=== PATIENT | male | born 1985 | race Caucasian/White ===

== ENCOUNTER 2019-09-10 18:23 | Emergency (ER) | payer OTHER ==
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
[2019-09-10] MEDS ORDERED: IBUPROFEN 800 MG TABLET PO ONE (18:34)
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
[2019-09-10] MEDS ORDERED: OXYCODONE-ACETAMINOPHEN 5-325 MG TABLET PO ONE (19:38)
[2019-09-10] MEDS ORDERED: DIPH/PERTUSS(ACELL)/TETANUS VAC/PF 0.5 ML SYR (>=10YO) IM ONE (19:38)
[2019-09-10] MEDS ORDERED: CYCLOBENZAPRINE HCL 10 MG TABLET PO ONE (20:01)
[2019-09-10] MEDS ORDERED: HYDROCODONE/ACETAMINOPHEN 5-325 MG (6 TAB/ER DISP) PO PRN (20:02)
[2019-09-10 20:48] VITALS: BP 119/81
== END 2019-09-10 20:49 | disposition home or self-care (01) ==
LOC: ER 18:23
DX: S70.212A Abrasion, left hip, initial encounter (principal); S80.212A Abrasion, left knee, initial encounter; M25.522 Pain in left elbow; M25.552 Pain in left hip; M25.572 Pain in left ankle and joints of left foot; M79.672 Pain in left foot; V29.9XXA Motorcycle rider (driver) (passenger) injured in unspecified traffic accident, initial encounter; F17.200 Nicotine dependence, unspecified, uncomplicated
CPT/HCPCS: 90715

== ENCOUNTER 2019-09-14 12:24 | Emergency (ER) | payer OTHER ==
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
--- NOTE | 2019-09-14 15:01 | RADIOLOGY REPORT (SQ) ---
EXAM DESCRIPTION: ANKLE LEFT COMPLETE; FOOT LEFT COMPLETE COMPLETED DATE/TIME: 09/14/2019 2:51 pm REASON FOR STUDY: continued pain, swelling, fall 09/10 COMPARISON: 09/10/2019 NUMBER OF VIEWS: Three views. TECHNIQUE: AP, lateral, and oblique radiographic images acquired of the left ankle. LIMITATIONS: None. FINDINGS: MINERALIZATION: Normal. BONES: No definite acute fracture or dislocation. Subtle ossific fragments about the medial aspect o f the talus. No worrisome bone lesions. JOINTS: No effusions. SOFT TISSUES: No soft tissue swelling. No foreign body. OTHER: No other significant finding. IMPRESSION: No definite fracture or dislocation of the left foot or ankle. Subtle ossific fragments about the medial aspect of the talus best seen on mortise view of the ankle, which may be related to fracture or avulsion. MRI may be used to further evaluate for subtle fracture as well as ligamentous integrity of the foot and ankle. TECHNICAL DOCUMENTATION: JOB ID: [id number] [employer]- All Rights Reserved Reading location - IP/workstation name: [email or web address]
--- NOTE | 2019-09-14 15:01 | RADIOLOGY REPORT (SQ) ---
EXAM DESCRIPTION: ANKLE LEFT COMPLETE; FOOT LEFT COMPLETE COMPLETED DATE/TIME: 09/14/2019 2:51 pm REASON FOR STUDY: continued pain, swelling, fall 09/10 COMPARISON: 09/10/2019 NUMBER OF VIEWS: Three views. TECHNIQUE: AP, lateral, and oblique radiographic images acquired of the left ankle. LIMITATIONS: None. FINDINGS: MINERALIZATION: Normal. BONES: No definite acute fracture or dislocation. Subtle ossific fragments about the medial aspect o f the talus. No worrisome bone lesions. JOINTS: No effusions. SOFT TISSUES: No soft tissue swelling. No foreign body. OTHER: No other significant finding. IMPRESSION: No definite fracture or dislocation of the left foot or ankle. Subtle ossific fragments about the medial aspect of the talus best seen on mortise view of the ankle, which may be related to fracture or avulsion. MRI may be used to further evaluate for subtle fracture as well as ligamentous integrity of the foot and ankle. TECHNICAL DOCUMENTATION: JOB ID: [id number] [employer]- All Rights Reserved Reading location - IP/workstation name: [email or web address]
--- NOTE | 2019-09-14 16:07 | RADIOLOGY REPORT (SQ) ---
EXAM DESCRIPTION: CT LT LOWER EXTREMITY WITHOUT COMPLETED DATE/TIME: 09/14/2019 3:52 pm REASON FOR STUDY: Possible talus fx per xray, + swelling left ankle COMPARISON: None. TECHNIQUE: Axial imaging performed through the left ankle with reformatted coronal and sagittal imag ing windowed for bone and soft tissues. Images saved to PACS. 3D IMAGING: Were 3D images as MIP, SSD, or volume rendering performed at the work station? No. All CT scanners at this facility use dose modulation, iterative reconstruction, and/or weight based d osing when appropriate to reduce radiation dose to as low as reasonably achievable (ALARA). [facility]: Dose Right [facility]: CareDose [facility]: Dose Right [facility]: Teradose 4D [facility]: [employer] LIMITATIONS: None. RADIATION DOSE: mGy. FINDINGS: SOFT TISSUES: There is soft tissue edema surrounding the medial and lateral malleolus. BONES: As described on plain films there are small bone fragments adjacent to the talus on the medial all aspect of the ankle. This could represent acute or chronic injury. The patient will need MRI f or additional assessment. MINERALIZATION: Normal. OTHER: No other significant finding. IMPRESSION: Soft tissue edema. There are bone fragments along the medial aspect of the talus. This could be related to old trauma but based on the amount of edema suspect at least ligamentous injury. Acute avulsion injury or chip fracture cannot be excluded. MRI is recommended to evaluate for alfredito ow edema. TECHNICAL DOCUMENTATION: JOB ID: [id number] Quality ID # [id number]: Final reports with documentation of one or more dose reduction techniques (e.g., Au tomated exposure control, adjustment of the mA and/or kV according to patient size, use of iterative reconstruction technique) 2010 [employer]- All Rights Reserved Reading location - IP/workstation name: [email or web address]
[2019-09-14 16:51] VITALS: BP 119/84
== END 2019-09-14 16:50 | disposition home or self-care (01) ==
LOC: ER 12:24
DX: S90.02XA Contusion of left ankle, initial encounter (principal); S90.32XA Contusion of left foot, initial encounter; M25.572 Pain in left ankle and joints of left foot; M79.672 Pain in left foot; V29.9XXA Motorcycle rider (driver) (passenger) injured in unspecified traffic accident, initial encounter; F17.200 Nicotine dependence, unspecified, uncomplicated
CPT/HCPCS: 99284